=== PATIENT | female | born 1980 | race African-American/Black ===

== ENCOUNTER 2023-07-07 18:38 | Emergency (ER) | payer BC, OTHER ==
[2023-07-07 18:54] VITALS: BP 98/58; PULSE 68; RESP 18; TEMP 98.6; BMI 29.2
== END 2023-07-07 20:35 | disposition left against medical advice (07) ==
LOC: JER 18:38
DX: Z48.00 Encounter for change or removal of nonsurgical wound dressing (principal)
CPT/HCPCS: 99281-25